=== PATIENT | male | born 1960 | race Two or more races ===

== ENCOUNTER 2024-01-15 17:01 | Inpatient (IN) | payer MEDICAID, OTHER ==
[~2024-01-15] VITALS: Ht 162.6 cm; Wt 63.6 kg
[2024-01-15 18:33] LABS: Basophils # (auto) 0 10 ^3/uL (0-0.2); Basophils % (auto) 0.2 % (0.0-2.0); Eosinophils # (auto) 0.1 10 ^3/uL (0-0.8); Hematocrit 49.4 % (41.0-53.0); Hemoglobin 16.3 g/dL (13.5-17.5); Lymphocytes # (auto) 1.4 10 ^3/uL (0.4-5.4); Lymphocytes % (auto) 17.4 % (10.0-50.0); Mean Corpuscular Hemoglobin 30.5 pg (28.0-32.0); Mean Corpuscular Hgb Conc. 33.1 g/dL (32.0-36.0); Mean Corpuscular Volume 92.3 fL (80.0-100.0); Monocytes # (auto) 0.6 10 ^3/uL (0-1.3); Monocytes % (auto) 7.5 % (0.0-12.0); Neutrophils # (auto) 5.9 10 ^3/uL (1.6-8.6); Neutrophils % (auto) 73.9 % (37.0-80.0); Nucleated Red Blood Cells % 0.1 %; Red Blood Cells 5.35 10^6/uL (4.5-5.90); Red Cell Distribution Width 12.9 % (11.8-14.3); White Blood Cell 7.9 10^3/uL (4.4-10.8)
[2024-01-15 18:48] LABS: Urine Bacteria NONE SEEN /hpf (None Seen); Urine Blood Negative /uL (Negative); Urine Clarity Clear (Clear); Urine Color Colorless (Yellow); Urine Protein, UAD Negative (Negative); Urine Specific Gravity 1.005 (1.001-1.035); Urine Urobilinogen Normal (Negative); Urine WBC 15 /hpf (0 - 3); Urine pH 6.5 (5.0-8.0)
[2024-01-15 18:56] LABS: Alanine Aminotransferase 19 U/L (7-40); Albumin 4.6 g/dL (3.2-4.8); Alkaline Phosphatase 92 U/L (46-116); Anion Gap 5 (5-15); Aspartate Aminotransferase 18 U/L (13-40); BUN/Creatinine Ratio 12.8 (10.0-20.0); Blood Urea Nitrogen 12 mg/dL (9-23); Calcium 9.7 mg/dL (8.5-10.1); Carbon Dioxide 30 mmol/L (20-30); Chloride 105 mmol/L (98-107); Glucose 140 mg/dL (74-106); Potassium 4.1 mmol/L (3.5-5.1); Sodium 140 mmol/L (136-145); Total Protein 6.8 g/dL (5.7-8.2)
[2024-01-15] MEDS: ASPirin 325 MG TAB PO ONE (21:00)
[2024-01-15] MEDS ORDERED: TEMAZEPAM 15 MG CAP PO PRN (23:00)
[2024-01-15] MEDS ORDERED: ONDANSETRON HCL 4 MG/2 ML VIAL IV PRN ×2 (23:00→23:15)
[2024-01-15] MEDS ORDERED: ACETAMINOPHEN 325 MG TAB PO PRN ×2 (23:00→23:15)
[2024-01-15] MEDS ORDERED: ENOXAPARIN SOD 100 MG/1 ML SYRINGE SC ONE (23:00)
[2024-01-15] MEDS ORDERED: NITROGLYCERIN 0.4 MG SL TAB SL PRN ×2 (23:00→23:15)
[2024-01-15] MEDS: ENOXAPARIN SOD 100 MG/1 ML SYRINGE SC ONE (23:00)
[2024-01-15] MEDS ORDERED: MORPHINE SULFATE INJ 2 MG/ml SYRG IV PRN ×2 (23:00→23:15)
[2024-01-16] MEDS: cefTRIAXone 1GM/50ML D5W 50 ML IV SCH
[2024-01-16] MEDS: LEVOTHYROXINE SODIUM 50 MCG TAB PO SCH (06:53)
[2024-01-16] MEDS ORDERED: LEVOTHYROXINE SODIUM 50 MCG TAB PO SCH (07:00)
[2024-01-16 07:42] LABS: Anion Gap 8 (5-15); Carbon Dioxide 26 mmol/L (20-30); Chloride 105 mmol/L (98-107); Sodium 139 mmol/L (136-145)
[2024-01-16 07:48] LABS: BUN/Creatinine Ratio 7.5 (10.0-20.0); Blood Urea Nitrogen 10 mg/dL (9-23); Glucose 94 mg/dL (74-106)
[2024-01-16] MEDS ORDERED: cefTRIAXone 1GM/50ML D5W 50 ML IV SCH (09:00)
[2024-01-16] MEDS ORDERED: FINASTERIDE 5 MG TAB PO SCH (10:00)
[2024-01-16] MEDS ORDERED: ASPirin 81 mg TAB PO SCH (10:00)
[2024-01-16] MEDS: ASPirin 81 mg TAB PO SCH (11:25)
[2024-01-16] MEDS: FINASTERIDE 5 MG TAB PO SCH (11:26)
[2024-01-16 11:30] VITALS: PULSE 115; RESP 23; O2SAT 97
[2024-01-16] MEDS: LEVOTHYROXINE SODIUM 88 MCG TAB PO ONE (13:52)
[2024-01-16 13:59] LABS: Amphetamine Screen, Urine Neg (NEGATIVE); Barbiturate Scree,Urine Neg (NEGATIVE); Benzodiazephine Screen, Urine Neg (NEGATIVE); Cannabinoid Screen, Urine Pos (NEGATIVE); Cocaine Screen, Urine Neg (NEGATIVE); Opiate Scree,Urine Neg (NEGATIVE); Phencyclidine Screen, Urine Neg (NEGATIVE)
[2024-01-16 13:59] LABS: Triglycerides 78 mg/dL (< 150)
[2024-01-16 14:00] LABS: LDL Cholesterol 59 mg/dL (< 100)
[2024-01-16 14:01] LABS: Cholesterol 96 mg/dL (< 200); HDL Cholesterol 31 mg/dL (40-59)
[2024-01-16] MEDS: ENOXAPARIN SOD 60 MG/0.6 ML SYRINGE SC SCH (19:12)
[2024-01-16 19:50] VITALS: PULSE 86; RESP 17; O2SAT 96
[2024-01-16] MEDS ORDERED: ATORVASTATIN 20 MG TAB PO SCH (22:00)
[2024-01-16] MEDS: AMIODARONE HCL 200 MG TAB PO SCH (22:15)
[2024-01-16] MEDS: ATORVASTATIN 20 MG TAB PO SCH (22:16)
[2024-01-16] MEDS: METOPROLOL TARTRATE 25 MG TAB PO SCH (22:16)
[2024-01-17] MEDS: TEMAZEPAM 15 MG CAP PO PRN (01:49)
[2024-01-17] MEDS: LEVOTHYROXINE SODIUM 88 MCG TAB PO SCH (06:38)
[2024-01-17] MEDS ORDERED: LEVO50TA7 PO (08:49)
[2024-01-17] MEDS ORDERED: FIN5T PO (08:49)
[2024-01-17 09:47] LABS: COVID19 ANTIGEN SOFIA FIA NEGATIVE (NEGATIVE)
[2024-01-17] MEDS ORDERED: ASPirin 81 mg TAB PO SCH (10:00)
[2024-01-17 10:07] VITALS: BP 138/84; PULSE 79; RESP 18; TEMP 98.3; O2SAT 100
[2024-01-17 10:30] VITALS: PULSE 80
[2024-01-17 11:00] VITALS: BP 138/84; PULSE 79; RESP 18; TEMP 98.3; O2SAT 100
[2024-01-17 12:52] LABS: Rapid Influenza A Negative (Negative); Rapid Influenza B Negative (Negative)
[2024-01-17 16:37] VITALS: BP 151/88; PULSE 70; RESP 16; TEMP 98.1; O2SAT 98
[2024-01-17 20:00] VITALS: BP 151/86; PULSE 64; PULSE 69; RESP 17; TEMP 98.4; O2SAT 96
[2024-01-17 22:00] VITALS: BP 151/86; PULSE 64; RESP 17; TEMP 98.4; O2SAT 96
[2024-01-18 05:00] VITALS: BP 141/75; PULSE 65; RESP 18; TEMP 98.1; O2SAT 97
[2024-01-18 08:00] VITALS: PULSE 75
[2024-01-18 08:11] VITALS: PULSE 70; RESP 17; O2SAT 96
[2024-01-18 09:26] VITALS: BP 140/94; PULSE 71; RESP 20; TEMP 97.9; O2SAT 96
[2024-01-18] MEDS ORDERED: METO25TA93 PO (11:28)
[2024-01-18] MEDS ORDERED: ATOR20TA PO (11:28)
[2024-01-18] MEDS ORDERED: AMIO200T33 PO (11:28)
[2024-01-18 11:53] VITALS: BP 133/75; PULSE 75; TEMP 36.6
== END 2024-01-18 12:30 | disposition home or self-care (01) | DRG 201 ==
LOC: ER 17:01 → TELE 22:55 → TELE-WESTW 01-17 10:28
PROVIDERS: ADMIT Nurse Practitioner; ATTEND Family Medicine
DX: I48.20 Chronic atrial fibrillation, unspecified (principal); I21.A1 Myocardial infarction type 2; N17.9 Acute kidney failure, unspecified; F10.10 Alcohol abuse, uncomplicated; R73.03 Prediabetes; G89.29 Other chronic pain; E03.9 Hypothyroidism, unspecified; I10 Essential (primary) hypertension; F41.9 Anxiety disorder, unspecified; N39.0 Urinary tract infection, site not specified; N40.0 Benign prostatic hyperplasia without lower urinary tract symptoms; Z20.822 Contact with and (suspected) exposure to COVID-19
CPT/HCPCS: 36415; 71045; 80048; 80053; 80061; 80307; 81001; 82962; 83036; 83605; 83735; 83880; 84443; 84484; 85025; 87086; 87426; 87804; 93005; 93306; G0378

== ENCOUNTER → 2024-03-26 | Outpatient (CLI) | payer MEDICAID ==
[~2024-03-26] VITALS: Ht 162.6 cm; Wt 63.0 kg
[~2024-03-26] MED LIST: AMIO200T33 PO; ATOR20TA PO; FIN5T PO; LEVO50TA7 PO; METO25TA93 PO
[2024-03-26] MEDS: ADENOSINE 53 MG in GIVE UN-DILUTED 0 ML IV ONE (14:44)
== END | disposition home or self-care (01) ==
LOC: XYW 13:44
PROVIDERS: ATTEND Student in an Organized Health Care Education/Training Program
DX: I25.2 Old myocardial infarction (principal); I48.0 Paroxysmal atrial fibrillation
CPT/HCPCS: 78452; 93017; A9500; J0153